=== PATIENT | female | born 1970 | race Hispanic/Latino ===

== ENCOUNTER 2019-11-12 23:31 | Emergency (ER) | payer MEDICARE ==
[2019-11-12] MEDS ORDERED: SODIUM CHLORIDE 0.9% 500 ML 500 ML IV ONE (23:46)
--- NOTE | 2019-11-12 23:46 | Emergency Department Report ---
ED General Adult HPI - General Chief complaint: Weakness Stated complaint: FALL, LOW BLOOD PRESSURE Time Seen by Provider: 11/12/19 23:33 Source: patient, EMS ( EMS documentation not available at time of chart dictation ), RN notes reviewed, old records reviewed Mode of arrival: Stretcher Limitations: No Limitations - History of Present Illness Initial comments: The patient is a 49-year-old female. She is not known to myself previously. During the entire history and physical examination, I am salad counter attendant and escorted by nurse John Arroyo The patient has a past medical history of psychiatric disease. She was reportedly discharged from a psychiatric facility today. She is brought to the hospital by emergency medical services with a complaint of frequent falls. As per review of old medical records, the patient has been having falls since 2013. She has chronic bilateral knee pain. She believes that she hit her head and lost consciousness but she is not sure. There is no complaint of focal extremity weakness and or numbness. There is no complaint of dysuria, there is no complaint of new cough or shortness of breath, there is a complaint of weakness, there is no bright red blood per rectum, no irritative urinary symptoms, no endorsement of homicidality or suicidality. The patient asks if she can be admitted. The patient indicates that she does not have any place to go after being discharged from her psychiatric facility. She is also asking for food and for water. -: month(s), year(s) Location: left, right, lower extremity Quality: other (Patient does not describe the qualitative nature of her knee pain) Improves with: other (The pain in the knees increases with palpation and decreases with rest) - Related Data Previous Rx's Medication Instructions Recorded Last Taken Type Ciprofloxacin HCl [Cipro] 500 mg PO BID #14 tablet 07/13/14 Unknown Rx Allergies Allergy/AdvReac Type Severity Reaction Status Date / Time diphenhydramine HCl Allergy Rash Verified 07/13/14 15:46 [From Benadryl] flu shot Allergy Unknown Uncoded 07/13/14 15:46 ED Review of Systems ROS: Stated complaint: FALL, LOW BLOOD PRESSURE Other details as noted in HPI Constitutional: denies: fever Eyes: as per HPI ENT: as per HPI Respiratory: see HPI Cardiovascular: as per HPI. denies: syncope Gastrointestinal: denies: vomiting Genitourinary: as per HPI Musculoskeletal: as per HPI, arthralgia, myalgia Skin: as per HPI Neurological: as per HPI Psychiatric: as per HPI Hematological/Lymphatic: as per HPI ED Past Medical Hx - Past Medical History Hx Hypertension: Yes Hx Diabetes: Yes Hx COPD: Yes Additional medical history: cholesterol - Surgical History Additional Surgical History: c section, cleft palate repair - Social History Smoking Status: Current Every Day Smoker - Medications Home Medications: Home Medications Medication Instructions Recorded Confirmed Last Taken Type Ciprofloxacin HCl [Cipro] 500 mg PO BID #14 tablet 07/13/14 Unknown Rx ED Physical Exam - General Limitations: No Limitations General appearance: alert, in no apparent distress - Head Head exam: Present: atraumatic, normocephalic - Eye Eye exam: Present: normal appearance, EOMI, other (The left eye has a corneal opacity, suspicious for chronic cataract). Absent: nystagmus - ENT ENT exam: Present: normal exam, normal orophraynx, mucous membranes moist, normal external ear exam - Neck Neck exam: Present: normal inspection, full ROM. Absent: tenderness, meningismus - Respiratory Respiratory exam: Present: normal lung sounds bilaterally. Absent: respiratory distress - Cardiovascular Cardiovascular Exam: Present: regular rate, normal rhythm, normal heart sounds. Absent: bradycardia, tachycardia, irregular rhythm, systolic murmur, diastolic murmur, rubs, gallop - GI/Abdominal GI/Abdominal exam: Present: soft. Absent: distended, tenderness, guarding, rebound, rigid, pulsatile mass - Rectal Rectal exam: Present: normal inspection, normal rectal tone, heme (-) stool. Absent: heme (+) stool, black stool, bloody stool - Extremities Exam Extremities exam: Present: normal inspection, full ROM, tenderness (There is bilateral knee tenderness, anterior, medial, and lateral joint line. There is no redness, pus or streaking. The pelvis is stable. The compartments are soft. There is no long bony tenderness otherwise. There were 2+ pulses in the bilateral upper and lower extremities) - Back Exam Back exam: Present: normal inspection. Absent: tenderness, CVA tenderness (R), CVA tenderness (L), paraspinal tenderness, vertebral tenderness - Neurological Exam Neurological exam: Present: alert, other (There is no facial droop. The tongue is midline. Extraocular movements are intact bilaterally. There is 5 out of 5 strength in bilateral upper and lower extremities. Sensation is intact to light touch bilateral upper and lower extremities. There is a normal gait.) - Psychiatric Psychiatric exam: Present: anxious - Skin Skin exam: Present: warm, dry, intact, normal color. Absent: rash ED Course Vital Signs 11/12/19 11/12/19 11/13/19 23:43 23:44 01:45 Temperature 98.3 F Pulse Rate 88 85 Respiratory 19 18 18 Rate Blood Pressure 114/62 Blood Pressure 103/67 [Left] O2 Sat by Pulse 97 98 95 Oximetry - Reevaluation(s) Reevaluation #1: 11/13/19 00:16 Differential diagnosis, including but not limited to: Malingering, deconditioning, equipment malfunction, pneumonia, urinary tract infection, electrolyte derangement, thyroid derangement, anemia Assessment and plan: 49-year-old female, who is awake, alert, oriented at this time, with a GCS of 15, who is not currently tachycardic, tachypneic or hypoxic, who is clinically sober at this time, who was discharged from a psychiatric facility today, reports multiple falls, as per review of old medical records, this has been going on since 2013, with a history of hypotension as per EMS, blood pressure in the 80s, now blood pressure 114/70. Brown stool on rectal exam, guaiac negative. Patient noted by myself, and multiple nurses to be standing up and wa lking to the bathroom. Suspect malingering and/or secondary gain. The patient is not homicidal or suicidal, and she is cooperative. She does not meet criteria for 1013. Screening laboratory studies ordered, x-ray of the chest, pelvis, knees show no acute pathology, there appears to be a chronic healed left-sided fibular fracture, she has no neurovascular deficits, and she is asking to eat, to drink, and is noted to be sitting herself up and down on her stretcher without difficulty. A case management consultation is requested to determine if patient is eligible for home physical therapy and/or rehabilitation, but this can be done as an outpatient. Screening laboratory studies, urinalysis, CT scan of the brain, EKG ordered. 11/13/19 00:17 Reevaluation #2: 11/13/19 01:43 CT scan of the brain is negative for acute disease. Laboratory studies reviewed and appreciated. Patient tells nurse that she "forgot" to give a urine sample, in spite of being reminded multiple times. Still suspect secondary gain. The patient denies dysuria to myself. She can follow-up with an outpatient primary care doctor for her mild renal insufficiency, and for an outpatient urinalysis. X-rays do not demonstrate any emergent pathology. The patient is medically suitable to be discharged and does not meet criteria for hospitalization at this time. ED Medical Decision Making - Lab Data Result diagrams: 11/13/19 00:27 11/13/19 00:27 Vital Signs 11/12/19 23:43 Temperature 98.3 F Pulse Rate 88 Respiratory 19 Rate Blood Pressure 114/62 O2 Sat by Pulse 97 Oximetry - EKG Data -: EKG Interpreted by Me EKG shows normal: sinus rhythm Rate: normal - EKG Data 11/13/19 01:44 Sinus rhythm, 77 bpm, left axis deviation, left anterior fascicular block, right bundle branch block, QTC prolonged, not a STEMI, no prior for comparison - Radiology Data Radiology results: report reviewed, image reviewed interpreted by me: X-ray of the chest is negative for acute disease. X-ray of the pelvis is negative for acute disease. X-ray of the knee is negative for acute disease, chronic appearing left proximal fibula fracture with callus formation is noted Critical care attestation.: If time is entered above; I have spent that time in minutes in the direct care of this critically ill patient, excluding procedure time. ED Disposition Clinical Impression: History of fall, Renal insufficiency Disposition: DC-01 TO HOME OR SELFCARE Is pt being admited?: No Does the pt Need Aspirin: No Condition: Stable Additional Instructions: Please drink 4 to 6 cups of water per day for the foreseeable future. Avoid consumption of Motrin, ibuprofen, Aleve, Naprosyn. For the time being, do not take your blood pressure medication. Follow-up with an outpatient primary care doctor within the next 5 to 7 days. Please return to the emergency room right away with new, worsened or different symptoms, or symptoms not present on the initial emergency room evaluation. Avoid consumption of alcohol, and sedating/habit-forming medications. For the patient's convenience, numerous local primary care doctors have been listed. Patient may contact any of the local physicians at her convenience to arrange outpatient follow-up. Because the patient endorsed a history of falls, a case management consultation was ordered, they will contact the patient at the phone number that she has listed for outpatient follow-up, and after speaking to the patient, determine if she is eligible for outpatient physical therapy and/or rehabilitation. Alternatively, the patient may see [facility] outpatient physical therapy and rehabilitation on her own, if she still desires, and she may pay for it [id number], or with her concurrent insurance plan. Recommend that patient contact her private insurance provider to further clarify what services they will and will not cover in terms of outpatient physical therapy and rehabilitation. Referrals: IAN VICK MD [Staff Physician] - 3-5 Days [facility] [Provider Group] - 3-5 Days [facility] [Provider Group] - 3-5 Days
--- NOTE | 2019-11-13 00:28 | XRay Report ---
CHEST 1 VIEW INDICATION / CLINICAL INFORMATION: falls weak. COMPARISON: None available. FINDINGS: SUPPORT DEVICES: None. HEART / MEDIASTINUM: No significant abnormality. LUNGS / PLEURA: No significant pulmonary or pleural abnormality. No pneumothorax. ADDITIONAL FINDINGS: Old bilateral rib fractures. IMPRESSION: 1. No acute findings. Signer Name: Joel Zendejas MD Signed: 11/13/2019 12:24 AM Workstation Name: [email or web address]
--- NOTE | 2019-11-13 00:30 | XRay Report ---
AP PELVIS, 2 VIEWS 11/12/2019 INDICATION / CLINICAL INFORMATION: falls leg pain. COMPARISON: None available. FINDINGS: No acute fractures. Signer Name: Joel Zendejas MD Signed: 11/13/2019 12:25 AM Workstation Name: [id number]
--- NOTE | 2019-11-13 00:31 | XRay Report ---
BILATERAL AP KNEES 11/12/2019 INDICATION / CLINICAL INFORMATION: falls kne pain. COMPARISON: None available. FINDINGS: Healed proximal left fibular fracture. Mild degenerative changes in all compartments of the left knee . Moderate degenerative changes are seen in the medial compartment of the right knee. Signer Name: Joel Zendejas MD Signed: 11/13/2019 12:26 AM Workstation Name: [id number]
[2019-11-13 00:43] LABS: Hematocrit 34.4 % (30.3-42.9); Hemoglobin 11.8 gm/dl (10.1-14.3); Mean Corpuscular HGB Conc 34 % (30-34); Mean Corpuscular Volume 88 fl (79-97); Platelet Count 161 K/mm3 (140-440); Red Cell Distribution Width 18.3 % (13.2-15.2)
[2019-11-13 00:53] LABS: INR 1.15 (0.87-1.13)
[2019-11-13 01:03] LABS: Albumin 3.4 g/dL (3.9-5); Calcium 8.9 mg/dL (8.4-10.2)
[2019-11-13 01:46] VITALS: BP 103/67
--- NOTE | 2019-11-13 02:01 | Cat Scan Report ---
CT head/brain wo con INDICATION / CLINICAL INFORMATION: falls weak loc. TECHNIQUE: All CT scans at this location are performed using CT dose reduction for ALARA by means of automated e xposure control. COMPARISON: None available. FINDINGS: No acute intracranial hemorrhage. No abnormal extra-axial fluid collection. No large territorial infarctions or evidence of mass effect. The ventricular system and basilar cisterns are normal. Visualized paranasal sinuses and osseous structures are normal IMPRESSION: 1. No acute intracranial abnormality. Signer Name: Joel Zendejas MD Signed: 11/13/2019 1:57 AM Workstation Name: [id number]
== END 2019-11-13 03:01 | disposition home or self-care (01) ==
LOC: ED 23:31
DX: N28.9 Disorder of kidney and ureter, unspecified (principal); E11.9 Type 2 diabetes mellitus without complications; I10 Essential (primary) hypertension; J44.9 Chronic obstructive pulmonary disease, unspecified; E78.00 Pure hypercholesterolemia, unspecified; F17.200 Nicotine dependence, unspecified, uncomplicated; Z98.890 Other specified postprocedural states; Z79.899 Other long term (current) drug therapy; Z88.8 Allergy status to other drugs, medicaments and biological substances; Z91.81 History of falling
CPT/HCPCS: 36415; 70450; 71045; 72170; 73560; 80053; 82271; 82550; 83735; 84443; 85027; 85610; 93005; 93010; 99285; J7040; 80320; G0480